=== PATIENT | male | born 1980 | race Caucasian/White ===

== ENCOUNTER 2019-07-16 05:42 | Emergency (ER) | payer OTHER ==
[~2019-07-16 05:42] MED LIST: MECL-159 PO; PARO-41 PO
== END 2019-07-16 06:51 | disposition left against medical advice (07) ==
LOC: ER 05:42
DX: Z53.21 Procedure and treatment not carried out due to patient leaving prior to being seen by health care provider (principal)

== ENCOUNTER 2019-07-16 08:37 | Emergency (ER) | payer OTHER ==
[~2019-07-16] VITALS: Ht 167.6 cm; Wt 81.0 kg
[2019-07-16 08:50] VITALS: BP 136/84
[2019-07-16] MEDS ORDERED: IBUPROFEN 800MG TABLET PO ONE (09:45)
== END 2019-07-16 10:22 | disposition home or self-care (01) ==
LOC: ER 08:51
DX: S69.81XA Other specified injuries of right wrist, hand and finger(s), initial encounter (principal); X58.XXXA Exposure to other specified factors, initial encounter; Y93.89 Activity, other specified; Y92.89 Other specified places as the place of occurrence of the external cause; I10 Essential (primary) hypertension; F15.10 Other stimulant abuse, uncomplicated; E78.00 Pure hypercholesterolemia, unspecified; Z86.59 Personal history of other mental and behavioral disorders
CPT/HCPCS: 29130; 73140; 99283

== ENCOUNTER 2019-07-16 20:18 | Emergency (ER) | payer MEDICAID, OTHER ==
[~2019-07-16] VITALS: Ht 167.6 cm; Wt 82.0 kg
[2019-07-16 20:28] VITALS: BP 134/88
[2019-07-16] MEDS ORDERED: IBUPROFEN 600MG TABLET PO SCH (21:30)
== END 2019-07-16 23:08 | disposition left against medical advice (07) ==
LOC: ER 20:18
DX: M79.644 Pain in right finger(s) (principal); R03.0 Elevated blood-pressure reading, without diagnosis of hypertension
CPT/HCPCS: 99282

== ENCOUNTER 2019-07-17 13:35 | Emergency (ER) | payer MEDICAID ==
[~2019-07-17] VITALS: Ht 167.6 cm; Wt 77.0 kg
[2019-07-17] MEDS ORDERED: VANCOMYCIN 1 G PREMIX 200 ML IV ONE (14:15)
[2019-07-17] MEDS ORDERED: PIPERACILLIN/TAZ 3.375G PREMIX 50 ML IV ONE (14:15)
[2019-07-17] MEDS ORDERED: SODIUM CHLORIDE 0.9% 1000ML BAG (SEPSIS BOLUS) IV ONE (14:15)
[2019-07-17] MEDS ORDERED: KETOROLAC 30MG/ML VIAL IV ONE (14:15)
[2019-07-17 15:06] LABS: BASOPHILS % 0.8 % (0.0-2.0); EOSINOPHILS % 1.8 % (0.0-5.0); HEMOGLOBIN. 14.6 g/dL (14.0-18.0); MEAN CORPUSCULAR HEMOGLOBIN 32.2 pg (28.0-32.0); MEAN CORPUSCULAR VOLUME 94.8 fL (80.0-94.0); MEAN PLATELET VOLUME 9.5 fl (7.4-10.4); MONOCYTES % 7.2 % (2.0-8.0); NEUTROPHILS % 77.2 % (40.0-76.0); PLATELET 184 x1000/uL (130-400); RED BLOOD CELL COUNT 4.54 mill/uL (4.7-6.1); RED CELL DISTRIBUTION WIDTH 14.3 % (11.6-14.6)
[2019-07-17 15:24] LABS: CHLORIDE 107 mEq/L (98-107)
[2019-07-17 16:20] LABS: CLARITY URINE CLEAR (CLEAR); COLOR URINE YELLOW (YELLOW); KETONES URINE NEGATIVE (NEGATIVE); LEUKOCYTE ESTERASE URINE NEGATIVE (NEGATIVE); NITRITE URINE NEGATIVE (NEGATIVE); OCCULT BLOOD URINE NEGATIVE (NEGATIVE); PROTEIN URINE NEGATIVE (NEGATIVE); SPECIFIC GRAVITY URINE 1.018 (1.005-1.030); UROBILINOGEN URINE 0.2 E.U./dL (0.2-1.0)
[2019-07-17 16:38] LABS: CANNABINOID URINE SCREEN NEGATIVE (NEGATIVE)
[2019-07-17 16:39] LABS: *AMPHETAMINES SCREEN URINE PRESUMTIVE POSITIVE (NEGATIVE); *BARBITURATES SCREEN URINE NEGATIVE (NEGATIVE); *BENZODIAZEPINES SCREEN URINE NEGATIVE (NEGATIVE); *COCAINE SCREEN URINE NEGATIVE (NEGATIVE); METHADONE URINE SCREEN NEGATIVE (NEGATIVE); OPIATES URINE SCREEN NEGATIVE (NEGATIVE); PHENCYCLIDINE URINE SCREEN NEGATIVE (NEGATIVE)
[2019-07-17] MEDS ORDERED: MORPHINE SULFATE 4 MG/ML CPJ (NOT FOR IM USE) IV ONE (20:45)
[2019-07-18 01:54] VITALS: BP 138/75
== END 2019-07-18 02:22 | disposition short-term general hospital (02) ==
LOC: ER 13:35 → CANBEDREQ 07-18 03:19
DX: M65.841 Other synovitis and tenosynovitis, right hand (principal); R03.0 Elevated blood-pressure reading, without diagnosis of hypertension; F15.10 Other stimulant abuse, uncomplicated
CPT/HCPCS: 36415; 73140; 80053; 80305; 81003; 84145; 84484; 85025; 87040; 96365; 96366; 96367; 96375; 99285; J1885; J2270; J2543; J3370; J7030

== ENCOUNTER 2019-07-24 17:58 | Emergency (ER) | payer MEDICAID ==
[~2019-07-24] VITALS: Ht 167.6 cm; Wt 82.0 kg
[2019-07-24 18:15] VITALS: BP 132/88
== END 2019-07-24 19:13 | disposition left against medical advice (07) ==
LOC: ER 17:58
DX: M79.89 Other specified soft tissue disorders (principal); Z53.21 Procedure and treatment not carried out due to patient leaving prior to being seen by health care provider

== ENCOUNTER 2019-10-11 20:30 | Emergency (ER) | payer MEDICAID ==
[~2019-10-11] VITALS: Ht 167.6 cm; Wt 81.0 kg
[2019-10-11 21:43] VITALS: BP 123/78
[2019-10-11] MEDS ORDERED: TETANUS, DIPHTHERIA, PERTUSSIS VAC/PF 0.5ML (>7YR OLD) IM ONE (21:45)
[2019-10-11] MEDS ORDERED: LIDOCAINE 1%/EPI 1:100,000 10 ML VIAL IJ ONE (21:45)
[2019-10-11] MEDS ORDERED: LIDOCAINE HCL/EPINEPHRINE 1%-EPI 1:100,000 20 ML VIAL INFIL NR (22:00)
== END 2019-10-11 23:45 | disposition home or self-care (01) ==
LOC: ER 20:30
DX: L02.414 Cutaneous abscess of left upper limb (principal); F15.129 Other stimulant abuse with intoxication, unspecified; Z79.899 Other long term (current) drug therapy; Z98.890 Other specified postprocedural states
CPT/HCPCS: 90471; 90715; 99283; J3490

== ENCOUNTER 2020-02-23 10:10 | Emergency (ER) | payer MEDICAID ==
[~2020-02-23] VITALS: Ht 167.6 cm; Wt 70.0 kg
[2020-02-23 10:20] VITALS: BP 112/58
== END 2020-02-23 10:42 | disposition home or self-care (01) ==
LOC: ER 10:10
DX: Z04.89 Encounter for examination and observation for other specified reasons (principal); F15.10 Other stimulant abuse, uncomplicated
CPT/HCPCS: 93005; 99283

== ENCOUNTER 2020-05-16 13:57 | Emergency (ER) | payer MEDICAID ==
[~2020-05-16] VITALS: Ht 167.6 cm; Wt 79.0 kg
[2020-05-16] MEDS ORDERED: ACETAMINOPHEN 325MG TABLET PO STA (15:25)
[2020-05-16] MEDS ORDERED: IBUPROFEN 600MG TABLET PO ONE (15:30)
[2020-05-16 15:59] VITALS: BP 135/75
[2020-05-16 16:12] LABS: EOSINOPHILS % 4.7 % (0.0-5.0); LYMPHOCYTES % 34.7 % (20.0-50.0); MEAN CORPUSCULAR HEMOGLOBIN 32.8 pg (28.0-32.0); MEAN CORPUSCULAR VOLUME 96.2 fL (80.0-94.0); MEAN PLATELET VOLUME 8.5 fl (7.4-10.4); MONOCYTES % 7.3 % (2.0-8.0); NEUTROPHILS % 52.3 % (40.0-76.0); PLATELET 205 x1000/uL (130-400); RED BLOOD CELL COUNT 4.57 mill/uL (4.7-6.1); RED CELL DISTRIBUTION WIDTH 13.2 % (11.6-14.6)
[2020-05-16 16:17] LABS: PROTHROMBIN TIME 10.2 sec (9.6-11.0)
[2020-05-16 16:19] LABS: CHLORIDE 110 mEq/L (98-107)
== END 2020-05-16 16:29 | disposition home or self-care (01) ==
LOC: ER 13:57
DX: R10.11 Right upper quadrant pain (principal); F15.10 Other stimulant abuse, uncomplicated
CPT/HCPCS: 36415; 76705; 80053; 85025; 99284

== ENCOUNTER 2020-06-19 09:41 | Emergency (ER) | payer MEDICAID | END 2020-06-19 10:16 | disposition home or self-care (01) | LOC: ER 09:41 | DX: Z53.21 Procedure and treatment not carried out due to patient leaving prior to being seen by health care provider (principal) ==

== ENCOUNTER 2020-07-01 22:55 | Emergency (ER) | payer MEDICAID, OTHER ==
[~2020-07-01] VITALS: Ht 167.6 cm; Wt 79.0 kg
[2020-07-02] MEDS ORDERED: KETOROLAC 15MG/ML VIAL IM ONE
[2020-07-02 00:23] VITALS: BP 128/92
== END 2020-07-02 00:23 | disposition home or self-care (01) ==
LOC: ER 22:55
DX: M54.2 Cervicalgia (principal); F15.10 Other stimulant abuse, uncomplicated; Z89.021 Acquired absence of right finger(s); Y00.XXXA Assault by blunt object, initial encounter; Y93.89 Activity, other specified; Y92.89 Other specified places as the place of occurrence of the external cause
CPT/HCPCS: 96372; 99283; J1885

== ENCOUNTER 2020-07-03 00:24 | Emergency (ER) | payer MEDICAID, OTHER ==
[~2020-07-03] VITALS: Ht 170.2 cm; Wt 80.0 kg
[2020-07-03] MEDS ORDERED: ACETAMINOPHEN 325MG TABLET PO ONE (02:00)
[2020-07-03 04:52] VITALS: BP 140/77
== END 2020-07-03 04:54 | disposition home or self-care (01) ==
LOC: ER 00:24
DX: M54.2 Cervicalgia (principal); F15.10 Other stimulant abuse, uncomplicated; Z98.890 Other specified postprocedural states
CPT/HCPCS: 72040; 99283

== ENCOUNTER 2020-09-19 07:23 | Emergency (ER) | payer MEDICAID, OTHER ==
[~2020-09-19] VITALS: Ht 175.3 cm; Wt 76.0 kg
[2020-09-19 07:25] VITALS: BP 130/85
== END 2020-09-19 08:09 | disposition left against medical advice (07) ==
LOC: ER 07:31
DX: R51.9 Headache, unspecified (principal); F15.10 Other stimulant abuse, uncomplicated; F17.210 Nicotine dependence, cigarettes, uncomplicated; F12.10 Cannabis abuse, uncomplicated; Z87.828 Personal history of other (healed) physical injury and trauma
CPT/HCPCS: 99283

== ENCOUNTER 2021-07-15 05:43 | Emergency (ER) | payer MEDICAID | END 2021-07-15 06:43 | disposition left against medical advice (07) | LOC: ER 05:43 | DX: Z53.21 Procedure and treatment not carried out due to patient leaving prior to being seen by health care provider (principal) ==

== ENCOUNTER 2021-10-03 02:12 | Emergency (ER) | payer MEDICAID ==
[~2021-10-03] VITALS: Ht 167.6 cm; Wt 70.0 kg
[2021-10-03 02:29] VITALS: BP 160/100
[2021-10-03 07:27] LABS: CLARITY URINE CLEAR (CLEAR); COLOR URINE YELLOW (YELLOW); KETONES URINE NEGATIVE (NEGATIVE); LEUKOCYTE ESTERASE URINE NEGATIVE (NEGATIVE); NITRITE URINE NEGATIVE (NEGATIVE); OCCULT BLOOD URINE NEGATIVE (NEGATIVE); PROTEIN URINE TRACE (NEGATIVE); SPECIFIC GRAVITY URINE 1.032 (1.005-1.030)
[2021-10-04 04:08] LABS: HIV SCREEN 4G Non Reactive (Non Reactive)
[2021-10-05 08:09] LABS: NEISSERIA GONORRHOEAE NAA Negative (Negative)
== END 2021-10-03 08:12 | disposition home or self-care (01) ==
LOC: ER 02:12
DX: Z20.2 Contact with and (suspected) exposure to infections with a predominantly sexual mode of transmission (principal); F15.10 Other stimulant abuse, uncomplicated; F12.10 Cannabis abuse, uncomplicated
CPT/HCPCS: 81003; 87389; 87491; 87591; 99283

== ENCOUNTER 2021-10-03 14:19 | Emergency (ER) | payer MEDICAID ==
[~2021-10-03] VITALS: Ht 167.6 cm; Wt 70.0 kg
[2021-10-03 14:21] VITALS: BP 169/93
== END 2021-10-03 14:32 | disposition left against medical advice (07) ==
LOC: ER 14:19
DX: Z53.21 Procedure and treatment not carried out due to patient leaving prior to being seen by health care provider (principal)

== ENCOUNTER 2022-03-28 04:21 | Emergency (ER) | payer MEDICAID ==
[~2022-03-28] VITALS: Ht 167.6 cm; Wt 65.1 kg
[2022-03-28 04:36] VITALS: BP 123/77
[2022-03-28] MEDS ORDERED: IBUPROFEN 600MG TABLET PO ONE (05:30)
== END 2022-03-28 05:45 | disposition left against medical advice (07) ==
LOC: ER 04:46
DX: M54.50 Low back pain, unspecified (principal); F12.10 Cannabis abuse, uncomplicated; F15.10 Other stimulant abuse, uncomplicated
CPT/HCPCS: 99282

== ENCOUNTER 2022-06-02 01:50 | Emergency (ER) | payer MEDICAID, OTHER | END 2022-06-02 02:27 | disposition left against medical advice (07) | LOC: ER 01:50 | DX: Z53.21 Procedure and treatment not carried out due to patient leaving prior to being seen by health care provider (principal) ==

== ENCOUNTER 2022-07-31 12:35 | Emergency (ER) | payer OTHER ==
[~2022-07-31] VITALS: Ht 162.6 cm; Wt 80.0 kg
[2022-07-31 12:38] VITALS: BP 145/88
[2022-07-31] MEDS ORDERED: IBUP-2028 MT (15:59)
[2022-07-31] MEDS ORDERED: KETOROLAC 60MG/2ML VIAL IM ONE (16:00)
== END 2022-07-31 16:11 | disposition home or self-care (01) ==
LOC: ER 12:35
DX: R51.9 Headache, unspecified (principal)
CPT/HCPCS: 99281

== ENCOUNTER 2022-08-26 03:30 | Emergency (ER) | payer OTHER ==
[~2022-08-26] VITALS: Ht 167.6 cm; Wt 69.0 kg
[~2022-08-26 03:30] MED LIST changes: +IBUP-2028 MT
[2022-08-26 04:45] LABS: EOSINOPHILS % 6.6 % (0.0-5.0); HEMATOCRIT. 44.4 % (42.0-52.0); HEMOGLOBIN. 15.3 g/dL (14.0-18.0); LYMPHOCYTES % 38.2 % (20.0-50.0); MEAN CORPUSCULAR HEMOGLOBIN 33.1 pg (28.0-32.0); MEAN CORPUSCULAR VOLUME 96.2 fL (80.0-94.0); MEAN PLATELET VOLUME 8.4 fl (7.4-10.4); MONOCYTES % 7.6 % (2.0-8.0); NEUTROPHILS % 46.6 % (40.0-76.0); PLATELET 224 x1000/uL (130-400); RED BLOOD CELL COUNT 4.61 mill/uL (4.7-6.1); RED CELL DISTRIBUTION WIDTH 13.4 % (11.6-14.6)
[2022-08-26 04:57] LABS: CHLORIDE 109 mEq/L (98-107)
[2022-08-26] MEDS ORDERED: KETOROLAC 60MG/2ML VIAL IM ONE (06:00)
[2022-08-26 06:13] LABS: CLARITY URINE CLEAR (CLEAR); COLOR URINE YELLOW (YELLOW); KETONES URINE NEGATIVE (NEGATIVE); LEUKOCYTE ESTERASE URINE NEGATIVE (NEGATIVE); NITRITE URINE NEGATIVE (NEGATIVE); OCCULT BLOOD URINE NEGATIVE (NEGATIVE); PH URINE 5.5 (4.5-8.0); PROTEIN URINE NEGATIVE (NEGATIVE); SPECIFIC GRAVITY URINE 1.023 (1.005-1.030); UROBILINOGEN URINE 0.2 E.U./dL (0.2-1.0)
[2022-08-26 08:11] VITALS: BP 116/62
[2022-08-26] MEDS ORDERED: METH-653 MT (08:25)
[2022-08-26] MEDS ORDERED: IBUP-2029 MT (08:25)
== END 2022-08-26 09:15 | disposition home or self-care (01) ==
LOC: ER 03:30
DX: M54.50 Low back pain, unspecified (principal); M79.10 Myalgia, unspecified site; F12.90 Cannabis use, unspecified, uncomplicated; F19.90 Other psychoactive substance use, unspecified, uncomplicated
CPT/HCPCS: 36415; 74176; 80053; 81003; 85025; 96372; 99285; J1885

== ENCOUNTER 2024-07-25 04:12 | Emergency (ER) | payer OTHER ==
[~2024-07-25] VITALS: Ht 167.6 cm; Wt 87.0 kg
[~2024-07-25 04:12] MED LIST changes: +IBUP-2029 MT; -MECL-159 PO; +MECL-299 PO; +METH-653 MT
[2024-07-25 04:20] VITALS: O2SAT 98
[2024-07-25 04:22] VITALS: TEMP 36.7; O2SAT 97
[2024-07-25 05:08] VITALS: BP 115/85; PULSE 110; RESP 20
[2024-07-25] MEDS: KETOROLAC 30MG/ML VIAL IM ONE (05:08)
== END 2024-07-25 13:23 | disposition left against medical advice (07) ==
LOC: ER 04:12
DX: R51.9 Headache, unspecified (principal); Z53.21 Procedure and treatment not carried out due to patient leaving prior to being seen by health care provider
CPT/HCPCS: 96372; J1885

== ENCOUNTER 2025-02-10 19:10 | Emergency (ER) | payer OTHER ==
[~2025-02-10] VITALS: Ht 167.6 cm; Wt 82.0 kg
[~2025-02-10 19:10] MED LIST changes: +IBUP-1455 MT; -IBUP-2029 MT
[2025-02-10 19:11] VITALS: O2SAT 98
[2025-02-10 19:13] VITALS: TEMP 37.1; O2SAT 98
[2025-02-10] MEDS: MECLIZINE 25MG TABLET PO ONE (21:29)
[2025-02-10] MEDS: SODIUM CHLORIDE 0.9% 1,000 ML IV ONE (21:29)
[2025-02-10 22:05] VITALS: BP 148/95; PULSE 105; RESP 16
[2025-02-10] MEDS: KETOROLAC 15MG/ML VIAL IV ONE (22:05)
[2025-02-10 23:03] LABS: BASOPHILS % 0.9 % (0.0-2.0); EOSINOPHILS % 2.2 % (0.0-5.0); HEMATOCRIT. 46.8 % (42.0-52.0); HEMOGLOBIN. 15.4 g/dL (14.0-18.0); LYMPHOCYTES % 23.9 % (20.0-50.0); MEAN PLATELET VOLUME 9.3 fl (7.4-10.4); MONOCYTES % 6.5 % (2.0-8.0); NEUTROPHILS % 66.5 % (40.0-76.0); PLATELET 194 x1000/uL (130-400); RED BLOOD CELL COUNT 4.87 mill/uL (4.7-6.1); RED CELL DISTRIBUTION WIDTH 13.3 % (11.6-14.6)
[2025-02-10 23:12] LABS: CLARITY URINE CLEAR (CLEAR); COLOR URINE YELLOW (YELLOW); GLUCOSE URINE NEGATIVE (NEGATIVE); KETONES URINE NEGATIVE (NEGATIVE); LEUKOCYTE ESTERASE URINE NEGATIVE (NEGATIVE); NITRITE URINE NEGATIVE (NEGATIVE); OCCULT BLOOD URINE NEGATIVE (NEGATIVE); PH URINE 6.0 (4.5-8.0); PROTEIN URINE NEGATIVE (NEGATIVE); SPECIFIC GRAVITY URINE 1.029 (1.005-1.030); UROBILINOGEN URINE 1 E.U./dL (0.2-1.0)
[2025-02-10 23:18] LABS: CREATININE 0.6 mg/dL (0.6-1.3)
[2025-02-10 23:19] LABS: UREA NITROGEN BLOOD 13 mg/dL (9-23)
[2025-02-10 23:20] LABS: TROPONIN I HIGH SENSITIVITY < 4 ng/L (3.0-53)
[2025-02-10 23:21] LABS: ASPARTATE AMINOTRANSFERASE 20 IU/L (<34); BILIRUBIN DIRECT < 0.1 mg/dL (<=3.0); BILIRUBIN TOTAL 0.2 mg/dL (0.1-1.0); PROTEIN TOTAL 6.5 g/dL (6.0-8.3)
[2025-02-10] MEDS ORDERED: MECL-299 MT (23:32)
== END 2025-02-11 01:04 | disposition home or self-care (01) ==
LOC: ER 19:10 → CMPBEDREQ 02-11 07:50
DX: R42 Dizziness and giddiness (principal); R51.9 Headache, unspecified; R06.02 Shortness of breath
CPT/HCPCS: 99285; 96374; 70450; 71045; 96361; 80076; 80048; 81003; 83880; 83735; 85025; 84484; 36415; 93005; J1885; J8597; J7030